=== PATIENT | female | born 1960 | race Caucasian/White ===

== ENCOUNTER 2016-06-03 06:52 | Day surgery (SDC) | payer OTHER ==
[~2016-06-03] VITALS: Ht 160 cm; Wt 70.3 kg
[2016-06-03] MEDS ORDERED: BLOOD GLUCOSE MONITORING 1 DEV DEV FS ONE (08:55)
[2016-06-03] MEDS ORDERED: BLOOD GLUCOSE MONITORING 1 DEV DEV FS SCH (09:03)
[2016-06-03] MEDS ORDERED: FERROUS SULFAT325 MG PO (09:06)
[2016-06-03] MEDS ORDERED: ACTOS15 M1 PO (09:09)
[2016-06-03] MEDS ORDERED: LIPITOR40 MG PO (09:09)
[2016-06-03] MEDS ORDERED: PROPOFOL 200 MG/20 ML VIAL IV ONE (10:45)
[2016-06-03] MEDS ORDERED: SEVOFLURANE 250 ML BTL INH ONE (10:45)
[2016-06-03] MEDS ORDERED: ONDANSETRON 4 MG/2 ML VIAL IVP ONE (10:45)
[2016-06-03] MEDS ORDERED: fentaNYL 0.05 MG/ML VIAL ONE (10:57)
[2016-06-03] MEDS ORDERED: MIDAZOLAM 2 MG/2 ML VIAL ONE (10:57)
[2016-06-03] MEDS ORDERED: MORPHINE SULFATE 2 MG/ML SYR IVP PRN (11:50)
[2016-06-03] MEDS ORDERED: MIDAZOLAM 2 MG/2 ML VIAL IV ONE (11:50)
[2016-06-03] MEDS ORDERED: METOCLOPRAMIDE 10 MG/2 ML INJ VIAL IVP PRN (11:50)
[2016-06-03] MEDS ORDERED: MORPHINE SULFATE 4 MG/ML SYR IVP PRN ×2 (11:50)
[2016-06-03] MEDS ORDERED: IBUPROFEN 400 MG TAB PO PRN (12:00)
[2016-06-03] MEDS ORDERED: LACTATED RINGERS 1,000 ML IV SCH (12:00)
[2016-06-03] MEDS ORDERED: MORPHINE SULFATE 4 MG/ML SYR ONE (12:17)
[2016-06-03 13:00] VITALS: BP 124/71
[2016-06-03 13:15] VITALS: BP 121/72
[2016-06-03 13:30] VITALS: BP 118/76
[2016-06-03 14:00] VITALS: BP 118/67
[2016-06-03 15:00] VITALS: BP 111/71
[2016-11-14] MEDS ORDERED: ACTOPLUS MET 851 TAB PO (08:52)
[2016-11-14] MEDS ORDERED: LIPITOR40 MG PO (08:52)
[2016-11-14] MEDS ORDERED: GLIPIZIDE5 M2 PO (08:52)
[2016-11-14] MEDS ORDERED: PROVERA10 M1 PO (08:52)
[2016-11-14] MEDS ORDERED: DITROPAN5 MG PO (08:52)
[2016-11-17] MEDS ORDERED: FERROUS SULFAT325 MG PO ×2 (16:09→16:10)
[2016-11-17] MEDS ORDERED: MOTRIN400 MG PO (16:12)
[2016-11-17] MEDS ORDERED: COLACE100 M1 PO ×2 (16:13→16:16)
== END 2016-06-03 18:55 | disposition home or self-care (01) ==
LOC: MMU 06:52 → MDS 06:52 → MMU 10:07 → MTU 13:00 → MDS 18:55
PROVIDERS: ATTEND Obstetrics & Gynecology
DX: N95.0 Postmenopausal bleeding (principal); D25.1 Intramural leiomyoma of uterus; E78.5 Hyperlipidemia, unspecified; E11.9 Type 2 diabetes mellitus without complications; Z98.890 Other specified postprocedural states; Z87.440 Personal history of urinary (tract) infections
CPT/HCPCS: 36415; 58120; 71010; 80053; 81001; 82948; 85025; 85610; 85730; 87081; 93005; J2250; J2270; J2405; J2704; J3010; J7030; J7120

== ENCOUNTER 2016-06-05 10:04 | Emergency (ER) | payer OTHER ==
[~2016-06-05] VITALS: Ht 160 cm; Wt 70.3 kg
[~2016-06-05 10:04] MED LIST: ACTOS15 M1 PO; FERROUS SULFAT325 MG PO; LIPITOR40 MG PO
[2016-06-05 10:18] VITALS: BP 125/55
--- NOTE | 2016-06-05 10:25 | NUR ---
Patient to bed 02.
--- NOTE | 2016-06-05 10:35 | NUR ---
PATIENT PRESENTS TO ED DUE TO BURNING UPON URINATION,ITCHING, AND RIGHT BACK PAIN PT STATES ANDRA BEEN DRINKING A LOT OF WATER AND I HAD A PROCEDURE LAST THURSDAY BIOPSY AND D/C WITH DR. DOLAN,DENIES N/V/D; SKIN IS PINK/WARM/DRY; AAOX4 WITH EVEN AND STEADY GAIT; LUNGS CLEAR BL; HR EVEN AND REGULAR; PT DENIES ANY FEVER, CP, SOB, OR COUGH AT THIS TIME; PATIENT STATES PAIN OF 8/10 AT THIS TIME; PATIENT POSITIONED FOR COMFORT; HOB ELEVATED; BEDRAILS UP X2; BED DOWN. ER MD MADE AWARE OF PT STATUS.
--- NOTE | 2016-06-05 10:45 | NUR ---
DR. CASSIDY AWARE OF THE RESULT OF URINE DIPSTICK AND PREG
--- NOTE | 2016-06-05 11:00 | NUR ---
Patient discharged with v/s stable. Written and verbal after care instructions given and explained. Patient alert, oriented and verbalized understanding of instructions. Ambulatory with steady gait. All questions addressed prior to discharge. ID band removed. Patient advised to follow up with PMD. Rx of MACROBID given. Patient educated on indication of medication including possible reaction and side effects. Opportunity to ask questions provided and answered.ENCOURAGED FLUID INTAKE AND PT AGREED WITH IT.
[2016-06-05 11:03] VITALS: BP 114/74
[2016-11-14] MEDS ORDERED: PROVERA10 M1 PO (08:52)
[2016-11-14] MEDS ORDERED: GLIPIZIDE5 M2 PO (08:52)
[2016-11-14] MEDS ORDERED: DITROPAN5 MG PO (08:52)
[2016-11-14] MEDS ORDERED: LIPITOR40 MG PO (08:52)
[2016-11-14] MEDS ORDERED: ACTOPLUS MET 851 TAB PO (08:52)
[2016-11-17] MEDS ORDERED: FERROUS SULFAT325 MG PO ×2 (16:09→16:10)
[2016-11-17] MEDS ORDERED: MOTRIN400 MG PO (16:12)
[2016-11-17] MEDS ORDERED: COLACE100 M1 PO ×2 (16:13→16:16)
== END 2016-06-05 11:00 | disposition home or self-care (01) ==
LOC: MED 10:04
DX: N39.0 Urinary tract infection, site not specified (principal); E11.9 Type 2 diabetes mellitus without complications; E78.00 Pure hypercholesterolemia, unspecified

== ENCOUNTER 2016-11-11 07:50 | Outpatient (CLI) | payer OTHER ==
[~2016-11-11 07:50] MED LIST changes: -ACTOS15 M1 PO; +ATOR40TA PO; +FERR325E14 PO; -FERROUS SULFAT325 MG PO; -LIPITOR40 MG PO; +PIOG15TA13 PO
== END 2016-11-11 20:22 | disposition home or self-care (01) ==
LOC: MLB 07:50 → MCA 20:22
PROVIDERS: ATTEND Obstetrics & Gynecology
DX: Z01.818 Encounter for other preprocedural examination (principal); R00.1 Bradycardia, unspecified
CPT/HCPCS: 93005

== ENCOUNTER 2016-11-13 07:56 | Outpatient (CLI) | payer OTHER ==
[2016-11-13 09:38] LABS: APPEARANCE,URINE SL CLOUDY (CLEAR); BILIRUBIN,URINE NEGATIVE (NEGATIVE); BLOOD, URINE NEGATIVE (NEGATIVE); COLOR,URINE YELLOW (YELLOW); LEUKOCYTE ESTERASE ,URINE TRACE (NEGATIVE); NITRITE, URINE NEGATIVE (NEGATIVE); PH,URINE 5.5 (5.0-9.0); PROTEIN,URINE NEGATIVE (NEGATIVE); UGLUCOSE NEGATIVE (NEGATIVE); UROBILINOGEN,URINE 0.2 EU/dL (0.2 - 1)
[2016-11-13 09:42] LABS: BASOPHILS # (AUTO) 0.2 K/uL (0.00-0.22); BASOPHILS % (AUTO) 2.9 % (0.0-2.0); EOSINOPHILS # (AUTO) 0.2 K/uL (0-0.4); EOSINOPHILS % (AUTO) 2.3 % (0.0-4.0); HEMATOCRIT 41.7 % (36-48); HEMOGLOBIN 13.8 g/dL (12.0-16.0); LYMPHOCYTES # (AUTO) 1.4 K/uL (2.5-16.5); LYMPHOCYTES % (AUTO) 20.7 % (20.5-51.1); MEAN CORPUSCULAR HEMOGLOBIN 30 pg (27-31); MEAN CORPUSCULAR HGB CONC 33 g/dL (33-37); MEAN CORPUSCULAR VOLUME 91 fL (80-94); MONOCYTES # (AUTO) 0.6 K/uL (0.8-1.0); MONOCYTES % (AUTO) 9.2 % (1.7-9.3); NEUTROPHILS # (AUTO) 4.1 K/uL (1.8-7.7); NEUTROPHILS % (AUTO) 64.9 % (42.2-75.2); PLATELET COUNT (AUTO) 144 K/uL (140-450); RED BLOOD CELL COUNT(AUTO) 4.57 MIL/uL (4.20-5.40); RED CELL DISTRIBUTION WIDTH 11.9 % (11.6-13.7); WHITE BLOOD COUNT (AUTO) 6.5 K/uL (4.8-10.8)
[2016-11-13 09:51] LABS: ALBUMIN 3.6 g/dL (3.4-5.0); CALCIUM 8.7 mg/dL (8.5-10.1); CARBON DIOXIDE 28.2 mmol/L (21-32); CREATININE 0.8 mg/dL (0.6-1.3); POTASSIUM 4.2 mmol/L (3.5-5.1); TOTAL BILIRUBIN 0.5 mg/dL (0.0-1.0)
[2016-11-13 10:31] LABS: INR 1.1 (0.8-1.2); PROTHROMBIN TIME 10.9 secs (10.8-13.4)
[2016-11-13 12:17] LABS: RBC,URINE 0-2 /HPF (0-5)
[2016-11-13 12:18] LABS: BACTERIA,URINE 1+ /HPF (None Seen); MUCUS,URINE 2+ /LPF (None Seen); SQUAMOUS EPITHELIAL CELL,UR 4-10 (MOD) /LPF (0-3 (FEW))
[2016-11-14] MEDS ORDERED: METF1TAB PO (08:52)
[2016-11-14] MEDS ORDERED: GLIP5TAB13 PO (08:52)
[2016-11-14] MEDS ORDERED: DIT5 PO (08:52)
[2016-11-14] MEDS ORDERED: ATOR40TA PO (08:52)
[2016-11-14] MEDS ORDERED: MEDR10TA PO (08:52)
== END 2016-11-14 20:53 | disposition home or self-care (01) ==
LOC: MLB 07:56
DX: Z01.818 Encounter for other preprocedural examination (principal); Z90.710 Acquired absence of both cervix and uterus
CPT/HCPCS: 80053; 81001; 84702; 85025; 85610; 85730; 86886; 86900; 86901

== ENCOUNTER 2016-11-14 06:47 | Inpatient (IN) | payer OTHER ==
[~2016-11-14] VITALS: Ht 160 cm; Wt 70.3 kg
[2016-11-14] MEDS ORDERED: METF1TAB PO (08:52)
[2016-11-14] MEDS ORDERED: MEDR10TA PO (08:52)
[2016-11-14] MEDS ORDERED: GLIP5TAB13 PO (08:52)
[2016-11-14] MEDS ORDERED: DIT5 PO (08:52)
[2016-11-14] MEDS ORDERED: ATOR40TA PO (08:52)
--- NOTE | 2016-11-14 10:19 | NUR ---
CM NOTE INITIAL REVIEW SENT TO [facility] [phone] SEPTEMBER [phone]
[2016-11-14] MEDS ORDERED: BUPIVACAINE-MPF/EPI 0.25% 30 ML VIAL INJ ONE (10:28)
[2016-11-14] MEDS ORDERED: MIDAZOLAM 2 MG/2 ML VIAL ONE (10:47)
[2016-11-14] MEDS ORDERED: fentaNYL 0.05 MG/ML VIAL ONE ×2 (10:47→14:33)
[2016-11-14] MEDS ORDERED: PROPOFOL 200 MG/20 ML VIAL IV ONE (10:50)
[2016-11-14] MEDS ORDERED: ROCURONIUM 50 MG/5 ML VIAL IV ONE (10:50)
[2016-11-14] MEDS ORDERED: DESFLURANE 240 ML BTL INH ONE (10:50)
[2016-11-14] MEDS ORDERED: ONDANSETRON 4 MG/2 ML VIAL ONE (10:50)
[2016-11-14] MEDS ORDERED: SUCCINYLCHOLINE CHLORIDE 200 MG/10 ML VIAL IVP ONE (10:50)
[2016-11-14] MEDS ORDERED: LIDOCAINE 2% 100 MG/5 ML SYR IVP ONE (10:50)
[2016-11-14] MEDS ORDERED: DEXAMETHASONE 4 MG/ML VIAL ONE (10:50)
[2016-11-14] MEDS ORDERED: ONDANSETRON 4 MG/2 ML VIAL IVP PRN (11:30)
[2016-11-14] MEDS ORDERED: HYDROmorphone 1 MG/ML AMP IVP PRN (11:30)
[2016-11-14] MEDS ORDERED: BLOOD GLUCOSE MONITORING 1 DEV DEV FS SCH ×2 (11:40→21:45)
[2016-11-14] MEDS: LACTATED RINGERS 1,000 ML IV SCH (15:08)
[2016-11-14] MEDS: HYDROmorphone PFS 2 MG/ML SYR ONE ×2 (15:20→15:30)
[2016-11-14] MEDS ORDERED: HYDROmorphone PFS 2 MG/ML SYR ONE (15:54)
[2016-11-14 16:10] VITALS: BP 102/66
--- NOTE | 2016-11-14 16:10 | NUR ---
RECEIVED PT ON UNIT VIA GURNEY, PT IS DROWSY BUT AWAKEN WHEN CALLED BY NAME, A/OX4, PT HAS IV ON THE LT HAND, PATENT, INTACT, FLUSHING WELL, PT IS S/P ABDOMINAL HYSTERECTOMY 11/14/16, PT HAS ABDOMINAL DRESSING CLEAN AND INTACT, PAZ CATHETER IN PLACE NO URINE NOTED AT THIS TIME, DISCUSSED PLAN OF CARE WITH PT, PT VERBALIZED UNDERSTANDING, SAFETY/FALL PRECAUTIONS ARE IN PLACE, FAMILY IS AT BEDSIDE, CALL LIGHT IS WITHIN REACH, WILL CONTINUE TO MONITOR.
[2016-11-14] MEDS: HYDROmorphone 1 MG/ML AMP IVP PRN ×2 (17:22→21:57)
--- NOTE | 2016-11-14 18:00 | NUR ---
PT IS RESTING IN BED AT THIS TIME, CALL LIGHT IS WITHIN REACH, FAMILY IS AT BEDSIDE.
[2016-11-14] MEDS: ONDANSETRON 4 MG/2 ML VIAL IVP PRN (18:21)
--- NOTE | 2016-11-14 19:33 | NUR ---
ENDORSED PT TO ELADIA CHRISTENSEN. FOR CONTINUITY OF CARE, PT STABLE AT THIS TIME.
[2016-11-14 20:00] VITALS: BP 106/64
--- NOTE | 2016-11-14 20:00 | NUR ---
SEEN PT AWAKE, ALERT AND ORIENTED. DAUGHTER AT BEDSIDE. INITIAL ASSESSMENT DONE. ABDOMINAL DRESSING -CLEAN, DRY AND INTACT. PAZ CATH ON PLACED. VITAL SIGNS CHECKED. PT DENIES ANY PAIN AT THIS TIME AND JUST WANTS TO SLEEP RIGHT NOW. SAFETY REINFORCED. CALL LIGHT W/IN REACH. PT DENIES ANY OTHER NEEDS.
--- NOTE | 2016-11-14 20:23 | NUR ---
DR DOLAN CAME IN INFORMED HIM ABOUT PT'S BEING DIABETIC AND ASKED IF HE WANTS THE PT TO HAVE THE BLOOD SUGAR CHECKED. HE SAID DO A RANDOM TONIGHT AND CHECK EVERY MORNING.
[2016-11-14] MEDS ORDERED: ceFAZolin 1,000 MG VIAL ONE (21:44)
--- NOTE | 2016-11-14 21:55 | NUR ---
SEEN PT AWAKE. BLOOD SUGAR CHECKED:200. PT SAID BECAUSE I HAVEN'T TAKEN MY DIABETIC MEDICINE. REMINDED HER THAT SHE'S STILL NPO FOR NOW AND DR DOLAN IS AWARE. PT COMPLAINING OF INCISIONAL PAIN OF 7/10. WILL MEDICATE FOR PAIN ORDERED.
[2016-11-14 23:30] VITALS: BP 102/62
--- NOTE | 2016-11-14 23:30 | NUR ---
SEEN PT AWAKE. VITAL SIGNS CHECKED. PT STATES HER PAIN HAS IMPROVED.
[2016-11-15] MEDS: HYDROmorphone 1 MG/ML AMP IVP PRN ×3 (01:40→20:22)
[2016-11-15] MEDS: LACTATED RINGERS 1,000 ML IV SCH ×2 (01:40→07:08)
--- NOTE | 2016-11-15 01:40 | NUR ---
PT CALLED ASKING SOMETHING FOR PAIN. PT MEDICATED W/ DILAUDID IVP AND GIVEN SLOWLY. PT SAID SHE FEELS ANXIOUS RIGHT NOW AND STARTS TO FEEL NAUSEOUS. GAVE PT THE EMESIS BAG AND SOME PAPER TOWEL.
[2016-11-15] MEDS: ONDANSETRON 4 MG/2 ML VIAL IVP PRN ×2 (01:44→10:20)
--- NOTE | 2016-11-15 01:44 | NUR ---
PT GIVEN ZOFRAN IV PRN ORDERED. PT SAID SHE'S FEELING BETTER NOW BUT ALL OF A SUDDEN PT COMPLAINTS OF FEELING NAUSEOUS. INFORMED PT PROBABLY ITS GAS. PT SAID "PROBABLY BECAUSE I'M BURPING RIGHT NOW." PT FELT RELIEVED AFTER. INSTRUCTED TO CALL WHEN IN NEED. CALL LIGHT W/IN REACH.
[2016-11-15 04:30] VITALS: BP 103/51
--- NOTE | 2016-11-15 04:30 | NUR ---
SEEN PT ASLEEP BUT EASILY AROUSABLE. VITAL SIGNS CHECKED. PT NOT IN ANY DISCOMFORT AT THIS TIME. WILL CONTINUE TO MONITOR.
[2016-11-15] MEDS ORDERED: ceFAZolin 1,000 MG VIAL ONE (05:29)
--- NOTE | 2016-11-15 06:05 | NUR ---
SEEN PT AWAKE. IV ATB GIVEN ORDERED. PT STATES SHE HAS HEADACHE RIGHT NOW. BLOOD SUGAR CHECKED:150. WILL MEDICATE FOR HEADACHE ORDERED.
[2016-11-15] MEDS: KETOROLAC 30 MG/ML VIAL IVP PRN ×2 (06:18→15:47)
[2016-11-15 06:41] LABS: BASOPHILS # (AUTO) 0.2 K/uL (0.00-0.22); BASOPHILS % (AUTO) 1.8 % (0.0-2.0); EOSINOPHILS # (AUTO) 0.1 K/uL (0-0.4); EOSINOPHILS % (AUTO) 1.1 % (0.0-4.0); HEMATOCRIT 34.3 % (36-48); HEMOGLOBIN 11.4 g/dL (12.0-16.0); LYMPHOCYTES # (AUTO) 1.2 K/uL (2.5-16.5); LYMPHOCYTES % (AUTO) 14.3 % (20.5-51.1); MEAN CORPUSCULAR HEMOGLOBIN 31 pg (27-31); MEAN CORPUSCULAR HGB CONC 33 g/dL (33-37); MEAN CORPUSCULAR VOLUME 93 fL (80-94); MONOCYTES # (AUTO) 0.8 K/uL (0.8-1.0); MONOCYTES % (AUTO) 9.8 % (1.7-9.3); NEUTROPHILS # (AUTO) 6.2 K/uL (1.8-7.7); PLATELET COUNT (AUTO) 143 K/uL (140-450); RED CELL DISTRIBUTION WIDTH 12.2 % (11.6-13.7); WHITE BLOOD COUNT (AUTO) 8.5 K/uL (4.8-10.8)
[2016-11-15] MEDS: BLOOD GLUCOSE MONITORING 1 DEV DEV FS SCH ×2 (06:45→09:15)
--- NOTE | 2016-11-15 07:20 | NUR ---
RECEIVED PT FROM AMPARO MONTILLA AT BEDSIDE. PT IS A&OX4. NO DISTRESS NOTED. DAUGHTER AT BEDSIDE. C/O 8 PAIN, WILL GIVE PAIN MED. NO NAUSEA AT THIS TIME. PT HAS PAZ BAG DRAINING YELLOW URINE 300ML. PT HAS IV ON L HAND 20G RUNNING LR@125ML/HR. PT IS ON 3L NC, O2 SAT 99%, TURNED DOWN OXYGEN 2L. WILL RECHECK OXYGEN SAT. CALL LIGHT WITHIN REACH. WILL CONTINUE TO MONITOR.
[2016-11-15] MEDS ORDERED: BLOOD GLUCOSE MONITORING 1 DEV DEV FS SCH (07:30)
[2016-11-15 08:00] VITALS: BP 106/62
--- NOTE | 2016-11-15 09:00 | NUR ---
PT STATED SHE VOMITED A SMALL AMOUNT EARLIER, FELT BETTER AND NO MORE NAUSEA AT THIS TIME. PROVIDED WITH NEW VOMIT BAG AND EDUCATED PT TO CALL. PT VERBALIZED UNDERSTANDING. FAMILY AT BEDSIDE. CALL LIGHT WITHIN REACH. WILL CONTINUE TO MONITOR.
--- NOTE | 2016-11-15 11:50 | NUR ---
PT IS RESTING IN BED. PRACTICING INCENTIVE SPIROMETRY. FAMILY AT BEDSIDE. CALL LIGHT WITHIN REACH. WILL CONTINUE TO MONITOR.
--- NOTE | 2016-11-15 13:30 | NUR ---
NO COMPLAINTS AT THIS TIME. NO DISTRESS NOTED. CALL LIGHT WITHIN REACH. WILL CONTINUE TO MONITOR.
--- NOTE | 2016-11-15 15:05 | NUR ---
FAMILY VISITING AT BEDSIDE. NO COMPLAINTS AT THIS TIME. NO NAUSEA OR PAIN. CALL LIGHT WITHIN REACH. WILL CONTINUE TO MONITOR.
--- NOTE | 2016-11-15 15:54 | NUR ---
TEMP 100.7. ICE APPLIED. WILL RECHECK.
[2016-11-15 16:00] VITALS: BP 116/70
--- NOTE | 2016-11-15 16:20 | NUR ---
PT C/O VAGINAL BLEEDING. CLEANED AND APPLIED MENSTRUAL PAD AND UNDERWEAR. WILL MONITOR BLEEDING AND REPORT TO
--- NOTE | 2016-11-15 16:33 | NUR ---
ORAL TEMP 98.2.
--- NOTE | 2016-11-15 16:50 | NUR ---
DC PAZ CATH PER DR. DOLAN'S VERBAL ORDER. TOLERATED WELL.
--- NOTE | 2016-11-15 17:00 | NUR ---
PT TOOK A WALK IN HALLWAY. TOLERATED WELL. WENT BACK TO ROOM. WENT TO BATHROOM TO URINATE. SPOTS OF BLOOD NOTED ON PAD. WENT BACK TO BED. JELLO AND JUICE PROVIDED. CALLED KITCHEN FOR SOUP/LATE TRAY. CALL LIGHT WITHIN REACH. WILL CONTINUE TO MONITOR.
--- NOTE | 2016-11-15 19:25 | NUR ---
ENDORSED CARE OF PT TO BUSINESS INTELLIGENCE ENGINEER NURSE AT BEDSIDE. PT IN STABLE CONDITION.
--- NOTE | 2016-11-15 19:26 | NUR ---
RECEIVED REPORT FROM DAY RN FOR CONTINUITY OF CARE. PATIENT IS ALERT AND ORIENTED X4, DISCUSSED PLAN OF CARE WITH PATIENT, VERBALIZED UNDERSTANDING. SHIFT ASSESSMENT DONE, VITAL SIGNS STABLE AT THIS TIME. NO S/S OF RESPIRATORY DISTRESS OR DISCOMFORT NOTED. PATIENT STATES TOLERABLE PAIN AT THIS TIME, WILL MEDICATE NEEDED. IV PATENT AND INFUSING FLUIDS WELL. PATIENT S/P ABD HYSTERECTOMY, NO DRAINAGE NOTED ON DRESSING. PT STATES MINIMAL AMOUNT OF BLOOD ON PERIPAD. SAFETY PRECAUTIONS ENFORCED. CALL LIGHT WITHIN REACH, FAMILY MEMBER AT BEDSIDE, WILL CONTINUE TO MONITOR.
[2016-11-15 20:00] VITALS: BP 109/64
--- NOTE | 2016-11-15 20:22 | NUR ---
PATIENT AMBULATED IN HALLWAY, RETURNED TO BED AND REQUESTED PAIN MEDICATION, MEDICATED PER MD ORDER. VITAL SIGNS STABLE. CALL LIGHT WITHIN REACH AND FAMILY MEMBER AT BEDSIDE.
--- NOTE | 2016-11-15 22:11 | NUR ---
PATIENT SLEEPING AT THIS TIME, NO S/S OF DISTRESS OR DISCOMFORT NOTED, WILL CONTINUE TO MONITOR.
--- NOTE | 2016-11-16 00:24 | NUR ---
PATIENT SLEEPING AT THIS TIME, NO S/S OF DISTRESS OR DISCOMFORT NOTED. CALL LIGHT WITHIN REACH, WILL CONTINUE TO MONITOR.
--- NOTE | 2016-11-16 01:50 | NUR ---
PATIENT SLEEPING AT THIS TIME, NO S/S OF DISTRESS OR DISCOMFORT NOTED. CALL LIGHT WITHIN REACH.
[2016-11-16] MEDS: HYDROmorphone 1 MG/ML AMP IVP PRN (03:41)
--- NOTE | 2016-11-16 03:41 | NUR ---
PT C/O ABDOMINAL PAIN AFTER AMBULATING TO RESTROOM, VITAL SIGNS STABLE, PER PATIENT MINIMAL BLEEDING ON PERIPAD. WILL CONTINUE TO MONITOR.
[2016-11-16 04:00] VITALS: BP 105/66
[2016-11-16] MEDS: ONDANSETRON 4 MG/2 ML VIAL IVP PRN ×2 (04:22→08:58)
--- NOTE | 2016-11-16 04:22 | NUR ---
PT C/O FEELING HOT AND NAUSEOUS, MEDICATED WITH ZOFRAN AND PROVIDED COOL TOWEL AND ICE CHIPS. TEMP 97.9, ALL OTHER VS STABLE. WILL CONTINUE TO MONITOR.
--- NOTE | 2016-11-16 06:10 | NUR ---
PATIENT RESTING IN BED AT THIS TIME, NO S/S OF DISTRESS OR DISCOMFORT NOTED. CALL LIGHT WITHIN REACH.
--- NOTE | 2016-11-16 07:19 | NUR ---
ENDORSED PATIENT TO DAY RN FOR CONTINUITY OF CARE, PATIENT IS IN STABLE CONDITION.
--- NOTE | 2016-11-16 07:20 | NUR ---
RECEIVED PT FROM JARRETT MONTILLA AT BEDSIDE. PT IS C/O NAUSEA, WILL MEDICATE WHEN NEXT DOSE IS DUE. VOMIT BAG AT BEDSIDE, EDUCATED PT TO HOLD PO INTAKE UNTIL NAUSEA SUBSIDES. PT HAS IV ON L HAND 20G RUNNING LR @125. PT C/O FEELING OF CONSTIPATION. WILL PROVIDE PRUNE JUICE. ENCOURAGED AMBULATION WHEN FEELING WELL. SCDS IN PLACE. DRESSING IN PLACE. CALL LIGHT WITHIN REACH. WILL CONTINUE TO MONITOR.
[2016-11-16 08:00] VITALS: BP 109/66
[2016-11-16] MEDS ORDERED: ACETAMINOPHEN 325 MG TAB PO PRN (08:55)
[2016-11-16] MEDS ORDERED: BISACODYL 5 MG TABEC PO PRN (08:55)
--- NOTE | 2016-11-16 09:00 | NUR ---
ADMINISTERED ZOFRAN FOR NAUSEA. NO OTHER DISTRESS NOTED. CALL LIGHT WITHIN REACH. WILL CONTINUE TO MONITOR.
[2016-11-16] MEDS: BLOOD GLUCOSE MONITORING 1 DEV DEV FS SCH (09:44)
[2016-11-16] MEDS: SIMETHICONE 80 MG TAB.CHEW PO SCH ×3 (09:45→16:12)
[2016-11-16] MEDS: DOCUSATE SODIUM 100 MG GELCAP PO SCH (09:46)
--- NOTE | 2016-11-16 09:46 | NUR ---
PATIENT HAS BEEN SCREENED AND CATEGORIZED MODERATE NUTRITION RISK. PATIENT WILL BE SEEN WITHIN 3-5 DAYS OF ADMISSION. 11/16/16-11/18/[address]
--- NOTE | 2016-11-16 11:43 | NUR ---
PT IS RESTING IN BED. NO DISTRESS NOTED. NO COMPLAINTS AT THIS TIME. DAUGHTER AT BEDSIDE. CALL LIGHT WITHIN REACH. WILL CONTINUE TO MONITOR.
--- NOTE | 2016-11-16 14:00 | NUR ---
DR EXAMINED PT IN ROOM. ORDERED [facility], [place] 60GM DIET AND DISCONTINUE IVF IF EATING WELL. WILL CARRY OUT.
--- NOTE | 2016-11-16 15:00 | NUR ---
OFFERED PT CRACKERS. CALL LIGHT WITHIN REACH. WILL CONTINUE TO MONITOR.
[2016-11-16 16:00] VITALS: BP 123/80
[2016-11-16] MEDS: glipiZIDE 5 MG TAB PO SCH (16:12)
--- NOTE | 2016-11-16 17:30 | NUR ---
GAVE PT PRUNE JUICE WITH ICE. PT TOLERATING WELL. PT IS PASSING GAS. CALL LIGHT WITHIN REACH. WILL CONTINUE TO MONITOR.
--- NOTE | 2016-11-16 19:17 | NUR ---
ENDORSED CARE OF PT TO COMER ROD PILER CHARGE NURSE AT BEDSIDE. PT IN STABLE CONDITION.
--- NOTE | 2016-11-16 19:46 | NUR ---
RECEIVED REPORT, ASSUMED CARE. PT AAOX4.FAMILY VISITING AT BEDSIDE. RESPIRATION EVEN AND UNLABORED, NO SOB, DENIES PAIN AT THIS TIME. CONTINUE TO MONITOR FROM S/P TOTAL HYSTERECTOMY. DISCUSSED PLAN OF CARE. PT VERBALIZED UNDERSTANDING. WILL CONTINUE TO MONITOR. CALL LIGHT WITHIN EASY REACH.
[2016-11-16] MEDS: oxyCODONE/APAP 5/325 MG 1 TAB TAB PO PRN (20:11)
--- NOTE | 2016-11-16 22:00 | NUR ---
ROUNDS MADE, PT STILL AWAKE AT THIS TIME AND WATCHING TV. DENIES PAIN AT THIS TIME. ALL NEEDS MET. NO ACTIVE BLEEDING NOR DRAINAGE TO ABDOMINAL SURGICAL INCISION. WILL CONTINUE TO MONITOR.
[2016-11-17] VITALS: BP 91/56
--- NOTE | 2016-11-17 00:03 | NUR ---
ROUNDS MADE, PT SLEEPING AT THIS TIME WITH NO S/S OF RESPIRATORY DISTRESS. WILL CONTINUE TO MONITOR.
--- NOTE | 2016-11-17 01:30 | NUR ---
IVF DONE, DISCONTINUED ORDERED.
--- NOTE | 2016-11-17 02:30 | NUR ---
PT SOUND ASLEEP WITH NO S/S OF RESPIRATORY DISTRESS AT THIS TIME. WILL CONTINUE TO MONITOR.
--- NOTE | 2016-11-17 03:30 | NUR ---
ROUNDS MADE, PT SLEEPING AT THIS TIME WITH NO S/S OF RESPIRATORY DISTRESS. NO FACIAL GRIMACING OR MOANING INDICATING PAIN. WILL CONTINUE TO MONITOR.
--- NOTE | 2016-11-17 05:44 | NUR ---
PT STILL SLEEPING AT THIS TIME, EASILY AROUSABLE. NO S/S OF RESPIRATORY DISTRESS. WILL CONTINUE TO MONITOR.
[2016-11-17 07:01] LABS: BASOPHILS # (AUTO) 0.2 K/uL (0.00-0.22); BASOPHILS % (AUTO) 3.2 % (0.0-2.0); EOSINOPHILS # (AUTO) 0.2 K/uL (0-0.4); EOSINOPHILS % (AUTO) 2.5 % (0.0-4.0); HEMATOCRIT 31.9 % (36-48); HEMOGLOBIN 10.6 g/dL (12.0-16.0); LYMPHOCYTES # (AUTO) 1.5 K/uL (2.5-16.5); LYMPHOCYTES % (AUTO) 23.8 % (20.5-51.1); MEAN CORPUSCULAR HEMOGLOBIN 30 pg (27-31); MEAN CORPUSCULAR HGB CONC 33 g/dL (33-37); MEAN CORPUSCULAR VOLUME 91 fL (80-94); MONOCYTES # (AUTO) 0.5 K/uL (0.8-1.0); MONOCYTES % (AUTO) 7.4 % (1.7-9.3); NEUTROPHILS # (AUTO) 3.9 K/uL (1.8-7.7); NEUTROPHILS % (AUTO) 63.1 % (42.2-75.2); PLATELET COUNT (AUTO) 140 K/uL (140-450); RED BLOOD CELL COUNT(AUTO) 3.49 MIL/uL (4.20-5.40); WHITE BLOOD COUNT (AUTO) 6.3 K/uL (4.8-10.8)
--- NOTE | 2016-11-17 07:17 | NUR ---
PT AWAKE AND VERBALLY RESPONSIVE. PT IN STABLE CONDITION. ENDORSED TO NEXT SHIFT FOR CONTINUITY OF CARE.
--- NOTE | 2016-11-17 07:18 | NUR ---
PT AWAKE AND ALERT, NO SIGNS OF ACUTE DISTRESS. BOWEL SOUNDS ACTIVE IN ALL 4 QUADRANTS. BOWEL AND BLADDER CONTINENCE. ABDOMINAL SURGICAL INCISION S/P TOTAL ABDOMINAL HYSTERECTOMY 11/14 COVERED WITH DRY DRESSING. AMBULATORY WITH BRP. PATIENT HAS PAIN 6/10 IN ABDOMEN, HOWEVER DOES NOT WANT TO TAKE PAIN MEDICATION AT THIS TIME. IV PATENT AND ASYMPTOMATIC. RE-ORIENTED PATIENT TO HOSPITAL AND TO UNIT, PT VERBALIZED UNDERSTANDING. BED IN LOW POSITION WITH BILATERAL HALF SIDE RAILS UP, CALL LIGHT WITHIN REACH.
[2016-11-17 08:00] VITALS: BP 105/64
[2016-11-17] MEDS: BLOOD GLUCOSE MONITORING 1 DEV DEV FS SCH (08:00)
[2016-11-17] MEDS: DOCUSATE SODIUM 100 MG GELCAP PO SCH (08:04)
[2016-11-17] MEDS: SIMETHICONE 80 MG TAB.CHEW PO SCH ×2 (08:04→12:40)
[2016-11-17] MEDS: glipiZIDE 5 MG TAB PO SCH (08:04)
[2016-11-17] MEDS ORDERED: PIOGLITAZONE 15 MG TAB PO SCH (09:00)
--- NOTE | 2016-11-17 09:15 | NUR ---
PT RESTING COMFORTABLY IN BED, NO SIGNS OF ACUTE DISTRESS. BED IN LOW POSITION WITH BILATERAL HALF SIDE RAILS UP, CALL LIGHT WITHIN REACH. WILL CONTINUE TO MONITOR.
--- NOTE | 2016-11-17 10:09 | NUR ---
PT WALKING AROUND HALLWAY WITH STEADY GAIT, NO SIGNS OF ACUTE DISTRESS. REQUESTING PAIN MEDICATION FOR WHEN SHE IS DONE WALKING. WILL ADMINISTER AND CONTINUE TO MONITOR.
[2016-11-17] MEDS: oxyCODONE/APAP 5/325 MG 1 TAB TAB PO PRN (10:15)
--- NOTE | 2016-11-17 11:34 | NUR ---
CM NOTE CONCURRENT REVIEW SENT TO [facility] [phone] SEPTEMBER [phone], [place] [phone]
--- NOTE | 2016-11-17 11:42 | NUR ---
PAGED DR DOLAN TO ASK ABOUT PLAN FOR PATIENT IN REGARD TO DISCHARGE AND CARE OF ABDOMINAL INCISION.
--- NOTE | 2016-11-17 12:13 | NUR ---
PATIENT SITTING UPRIGHT IN BED EATING LUNCH, NO SIGNS OF ACUTE DISTRESS. SAFETY CHECKS IN PLACE. WILL CONTINUE TO MONITOR.
--- NOTE | 2016-11-17 14:16 | NUR ---
RECEIVED ORDER FOR DISCHARGE, NOTED, WILL CARRY OUT.
[2016-11-17 16:00] VITALS: BP 114/63
[2016-11-17] MEDS ORDERED: FERR325E14 PO ×2 (16:09→16:10)
[2016-11-17] MEDS ORDERED: IBUP-1842 PO (16:12)
[2016-11-17] MEDS ORDERED: DOCU-67 PO ×2 (16:13→16:16)
--- NOTE | 2016-11-17 16:55 | NUR ---
PT AWAKE AND ALERT, RESTING COMFORTABLY IN BED. EDUCATED PATIENT ON DISCHARGE INSTRUCTIONS INCLUDING SIGNS AND SYMPTOMS OF WORSENING CONDITION AND INFECTION, NEW PRESCRIPTIONS, CONTINUED MEDICATIONS, INCISIONAL CARE, LIGHT ACTIVITY AND TO FOLLOW UP WITH DR DOLAN ON 11/19/16 AT 1700. PT VERBALIZED UNDERSTANDING. PATIENT HAS PAIN OF 2/10 BUT VERBALIZED THAT IT IS TOLERABLE AND SHE DOES NOT WANT PAIN MEDICATION AT THIS TIME. D/C'D IV AND CUT OFF WRIST BANDS. WHEELED PATIENT OUT OF FRONT LOBBY TO GO HOME VIA PRIVATE AUTO WITH DAUGHTER.
== END 2016-11-17 16:55 | disposition home or self-care (01) | DRG 519 ==
LOC: MFCC 06:47 → MTU 16:41
PROVIDERS: ADMIT Obstetrics & Gynecology; ATTEND Obstetrics & Gynecology
PROC: 0UT70ZZ Resection of Bilateral Fallopian Tubes, Open Approach (ICD-10-PCS; 2016-11-14)
PROC: 0UTC0ZZ Resection of Cervix, Open Approach (ICD-10-PCS; 2016-11-14)
PROC: 0UT20ZZ Resection of Bilateral Ovaries, Open Approach (ICD-10-PCS; 2016-11-14)
PROC: 0UT90ZZ Resection of Uterus, Open Approach (ICD-10-PCS; principal; 2016-11-14 11:00)
DX: D25.9 Leiomyoma of uterus, unspecified (principal); N32.81 Overactive bladder; E11.9 Type 2 diabetes mellitus without complications; N92.1 Excessive and frequent menstruation with irregular cycle; N92.4 Excessive bleeding in the premenopausal period; E78.5 Hyperlipidemia, unspecified; E78.00 Pure hypercholesterolemia, unspecified; Z79.899 Other long term (current) drug therapy
CPT/HCPCS: 36415; 71010; 82948; 85025; 87081; 87086; J0330; J0690; J1100; J1170; J1885; J2001; J2250; J2405; J2704; J3010; J3490; J7060; J7120; Q0092